=== PATIENT | male | born 1985 | race Caucasian/White ===

== ENCOUNTER → 2018-11-09 | Outpatient (CLI) | payer OTHER ==
[~2018-11-09] MED LIST: AMOXICILLIN500 M2 PO; LEVOFLOXACIN500 MG PO; PROAIR HFA8.5 GM INH; PROVENTIL0.09 MG/A1 INH; VICODIN ES 7501 TAB PO
== END | disposition home or self-care (01) ==
LOC: RAD 14:14
DX: M25.551 Pain in right hip (principal); M54.41 Lumbago with sciatica, right side

== ENCOUNTER 2020-11-08 22:22 | Emergency (ER) | payer OTHER ==
[~2020-11-08] VITALS: Ht 182.8 cm; Wt 121.0 kg
[2020-11-08] MEDS ORDERED: ERYTHROMYCIN OPH1 GM OPH (23:07)
== END 2020-11-08 23:26 | disposition home or self-care (01) ==
LOC: ED 22:22
DX: T15.92XA Foreign body on external eye, part unspecified, left eye, initial encounter (principal); J45.909 Unspecified asthma, uncomplicated; Z79.2 Long term (current) use of antibiotics; Z79.899 Other long term (current) drug therapy; X58.XXXA Exposure to other specified factors, initial encounter; Y93.89 Activity, other specified; Y92.89 Other specified places as the place of occurrence of the external cause; Y99.8 Other external cause status

== ENCOUNTER 2025-03-12 16:31 | Emergency (ER) | payer BC ==
[~2025-03-12] VITALS: Ht 182.8 cm; Wt 138.3 kg
[~2025-03-12 16:31] MED LIST changes: +ERYTHROMYCIN OPH1 GM OPH
== END 2025-03-12 18:04 | disposition left against medical advice (07) ==
LOC: ED 16:31
DX: H57.12 Ocular pain, left eye (principal); Z53.21 Procedure and treatment not carried out due to patient leaving prior to being seen by health care provider

== ENCOUNTER 2025-04-06 15:52 | Emergency (ER) | payer BC ==
[~2025-04-06] VITALS: Ht 182.8 cm; Wt 136.1 kg
[2025-04-06] MEDS ORDERED: PENICILLIN VK500 MG PO (16:20)
[2025-04-06] MEDS ORDERED: NAPROSYN500 MG PO (16:20)
[2025-04-06] MEDS ORDERED: PENICILLIN V POTASSIUM 500 MG TAB PO ONE (16:25)
[2025-04-06] MEDS ORDERED: Acetaminophen/Oxycodone 5 MG/325 MG TABLET PO ONE (16:25)
== END 2025-04-06 16:35 | disposition home or self-care (01) ==
LOC: ED 15:52
DX: K04.7 Periapical abscess without sinus (principal); K02.9 Dental caries, unspecified; K03.81 Cracked tooth; J45.909 Unspecified asthma, uncomplicated; Z79.899 Other long term (current) drug therapy; Z98.890 Other specified postprocedural states

== ENCOUNTER 2025-06-03 04:13 | Emergency (ER) | payer BC ==
[~2025-06-03] VITALS: Ht 182.8 cm; Wt 136.1 kg
[~2025-06-03 04:13] MED LIST changes: +NAPROSYN500 MG PO; +PENICILLIN VK500 MG PO
[2025-06-03 05:44] LABS: BUN 7 mg/dl (9-23); ETHYL ALCOHOL 20.6 mg/dl (<3)
[2025-06-03 06:04] LABS: BASO # 0.1 10*3/uL (0.0-0.1); BASO % 0.4 % (0.0-1.0); EOS # 0.0 10*3/uL (0.0-0.4); EOS % 0.1 % (1.0-4.0); MEAN CELL VOLUME 87.0 fl (80.0-94.0); MEAN CORPUSCULAR HGB 27.7 pg (27.0-31.0); MEAN PLATELET VOLUME 8.9 fl (9.6-12.3); MONO # 0.7 10*3/uL (0.1-1.0); MONO % 4.5 % (3.0-9.0); NEUT # 12.8 10*3/uL (2.3-7.9); NEUT % 80.8 % (47.0-73.0); NUCLEATED RED BLOOD CELL 0.0 % (0.0-0.0); NUCLEATED RED BLOOD CELL 0.0 10*3/uL (0.0-0.0); PLATELET COUNT AUTOMATED 448 10*3/uL (130-400); RED CELL DISTRI WIDTH 14.0 % (0-14.5)
[2025-06-03] MEDS ORDERED: MELOXICAM15 MG PO (06:38)
== END 2025-06-03 07:07 | disposition home or self-care (01) ==
LOC: ED 04:13
PROVIDERS: Internal Medicine
DX: S09.90XA Unspecified injury of head, initial encounter (principal); H57.11 Ocular pain, right eye; Z98.890 Other specified postprocedural states; W50.0XXA Accidental hit or strike by another person, initial encounter; Y93.89 Activity, other specified; Y92.89 Other specified places as the place of occurrence of the external cause; Y99.8 Other external cause status